=== PATIENT | female | born 1950 | race Caucasian/White ===

== ENCOUNTER 2018-04-24 22:43 | Inpatient (IN) | payer OTHER ==
[~2018-04-24] VITALS: Ht 162.6 cm; Wt 84.8 kg
[2018-04-24 22:53] VITALS: Ht 162.6 cm; Wt 84.8 kg
[2018-04-24 23:29] LABS: PLATELET COUNT 141 x10^3mcL (130-400)
[2018-04-24 23:31] LABS: BASOPHIL % 0 % (0-2); RED CELL DISTRIBUTION WIDTH 15.1 % (11.5-14.5)
[2018-04-24 23:50] LABS: T3 TOTAL 0.53 ng/mL
[2018-04-25] VITALS (9 sets, daily range): BP systolic 86–118; BP diastolic 43–62
[2018-04-25 00:07] LABS: FREE T4 1.43 ng/dL (0.76-1.46); FREE THYROXINE INDEX 3.5 ug/dL (1.4-4.5); T4(THYROXINE) 9.5 ug/dL (4.7-13.3)
[2018-04-25 00:09] LABS: CK-MB 3.1 ng/mL (0-3.6)
[2018-04-25 00:13] LABS: ALBUMIN 3.8 g/dL (3.4-5.0); BILIRUBIN TOTAL 0.8 mg/dL (0.20-1.00); CALCIUM 9.7 mg/dL (8.5-10.1); CARBON DIOXIDE 24.8 mmol/L (21-32); CREATININE SERUM 3.6 mg/dL (0.6-1.0); POTASSIUM SERUM 5.2 mmol/L (3.5-5.1); TOTAL PROTEIN, SERUM 6.9 g/dL (6.4-8.2)
[2018-04-25 00:16] LABS: C REACTIVE PROTEIN 0.4 mg/dL (<=0.9)
[2018-04-25 00:23] LABS: ERYTHROCYTE SED RATE 5 mm/hr (0-30)
[2018-04-25 00:30] LABS: UA SPECIFIC GRAVITY >=1.030 (1.005-1.035); microscopic required? YES; urine erythrocyte NEGATIVE (NEGATIVE)
[2018-04-25] MEDS ORDERED: PIOGLITAZONE HY30 MG PO (00:44)
[2018-04-25] MEDS ORDERED: HYDRALAZINE HY100 MG PO (00:44)
[2018-04-25] MEDS ORDERED: REPAGLINIDE2 MG PO (00:45)
[2018-04-25] MEDS ORDERED: GLIPIZIDE XL10 M1 PO (00:45)
[2018-04-25] MEDS ORDERED: COREG6.25 M1 PO (00:45)
[2018-04-25] MEDS ORDERED: LISINOPRIL40 MG PO (00:46)
[2018-04-25] MEDS ORDERED: SIMVASTATIN40 M1 PO (00:46)
[2018-04-25] MEDS ORDERED: BAYER ASPIRIN R81 MG PO (00:47)
[2018-04-25] MEDS ORDERED: EPZICOM1 TAB (00:47)
[2018-04-25] MEDS ORDERED: ZOFRAN8 MG PO (00:47)
[2018-04-25 16:07] LABS: CALCIUM 8.8 mg/dL (8.5-10.1); CREATININE SERUM 3.7 mg/dL (0.6-1.0); POTASSIUM SERUM 4.8 mmol/L (3.5-5.1)
[2018-04-26 05:37] VITALS: BP 99/59
[2018-04-26 06:14] LABS: BASOPHIL % 0.5 % (0-2)
[2018-04-26 06:30] LABS: CALCIUM 8.2 mg/dL (8.5-10.1); CARBON DIOXIDE 24.8 mmol/L (21-32); CREATININE SERUM 3.4 mg/dL (0.6-1.0); POTASSIUM SERUM 4.4 mmol/L (3.5-5.1)
[2018-04-26 06:44] LABS: CHOLESTEROL/HDL RATIO 2.3
[2018-04-26 07:02] LABS: PLATELET COUNT 97 x10^3mcL (130-400)
[2018-04-26 09:29] VITALS: BP 108/65
[2018-04-26 13:25] VITALS: BP 110/70
[2018-04-26 17:11] VITALS: BP 107/61
[2018-04-26 21:32] VITALS: BP 103/58
[2018-04-27 06:10] VITALS: BP 118/72
[2018-04-27 06:47] LABS: BASOPHIL % 0.5 % (0-2)
[2018-04-27 07:00] LABS: PLATELET COUNT 100 x10^3mcL (130-400); RED CELL DISTRIBUTION WIDTH 14.9 % (11.5-14.5)
[2018-04-27 07:22] LABS: CALCIUM 8.4 mg/dL (8.5-10.1); CARBON DIOXIDE 21.3 mmol/L (21-32); CREATININE SERUM 2.8 mg/dL (0.6-1.0); MAGNESIUM 2.1 mg/dL (1.8-2.4); POTASSIUM SERUM 4.6 mmol/L (3.5-5.1)
[2018-04-27] MEDS ORDERED: ELIQUIS2.5 MG PO (08:40)
[2018-04-27] MEDS ORDERED: METOPROLOL TART25 M1 PO (08:40)
[2018-04-27 09:00] VITALS: BP 127/76
[2018-04-27 11:41] VITALS: BP 127/76
== END 2018-04-27 12:57 | disposition home or self-care (01) | DRG 280 ==
LOC: ED 22:43 → DU 04-25 01:15
PROVIDERS: Internal Medicine; Specialist; ADMIT Internal Medicine Pulmonary Disease
DX: I21.4 Non-ST elevation (NSTEMI) myocardial infarction (principal); N17.0 Acute kidney failure with tubular necrosis; I50.23 Acute on chronic systolic (congestive) heart failure; I48.92 Unspecified atrial flutter; J44.1 Chronic obstructive pulmonary disease with (acute) exacerbation; I13.0 Hypertensive heart and chronic kidney disease with heart failure and stage 1 through stage 4 chronic kidney disease, or unspecified chronic kidney disease; I95.9 Hypotension, unspecified; N18.3 Chronic kidney disease, stage 3 (moderate); E11.22 Type 2 diabetes mellitus with diabetic chronic kidney disease; E87.5 Hyperkalemia; E11.42 Type 2 diabetes mellitus with diabetic polyneuropathy; I25.5 Ischemic cardiomyopathy; I25.10 Atherosclerotic heart disease of native coronary artery without angina pectoris; I48.2 Chronic atrial fibrillation; R54 Age-related physical debility; D64.9 Anemia, unspecified; E78.5 Hyperlipidemia, unspecified; Z95.1 Presence of aortocoronary bypass graft; Z68.32 Body mass index [BMI] 32.0-32.9, adult; Z79.84 Long term (current) use of oral hypoglycemic drugs
CPT/HCPCS: 36600; 82962; 83880; 84439; J1160; J1650; J1815; J1940; J3490; J7030; Q0092

== ENCOUNTER 2018-05-02 11:36 | Emergency (ER) | payer OTHER ==
[~2018-05-02] VITALS: Ht 162.6 cm; Wt 84.4 kg
[~2018-05-02 11:36] MED LIST: BAYER ASPIRIN R81 MG PO; COREG6.25 M1 PO; ELIQUIS2.5 MG PO; EPZICOM1 TAB; GLIPIZIDE XL10 M1 PO; HYDRALAZINE HY100 MG PO; LISINOPRIL40 MG PO; METOPROLOL TART25 M1 PO; PIOGLITAZONE HY30 MG PO; REPAGLINIDE2 MG PO; SIMVASTATIN40 M1 PO; ZOFRAN8 MG PO
[2018-05-02 11:44] VITALS: Ht 162.6 cm; Wt 84.4 kg
[2018-05-02 12:26] LABS: BASOPHIL % 0.3 % (0-2); PLATELET COUNT 160 x10^3mcL (130-400)
[2018-05-02 12:41] LABS: RED CELL DISTRIBUTION WIDTH 15.3 % (11.5-14.5)
[2018-05-02 12:45] LABS: ALBUMIN 3.6 g/dL (3.4-5.0); BILIRUBIN TOTAL 1.05 mg/dL (0.20-1.00); CALCIUM 8.7 mg/dL (8.5-10.1); CARBON DIOXIDE 26.6 mmol/L (21-32); CREATININE SERUM 2.4 mg/dL (0.6-1.0); POTASSIUM SERUM 5.1 mmol/L (3.5-5.1); TOTAL PROTEIN, SERUM 6.6 g/dL (6.4-8.2)
[2018-05-02 14:15] VITALS: BP 124/74
== END 2018-05-02 14:15 | disposition home or self-care (01) ==
LOC: ED 11:36
PROVIDERS: Emergency Medicine
DX: R53.1 Weakness (principal); R11.0 Nausea; J44.9 Chronic obstructive pulmonary disease, unspecified; I10 Essential (primary) hypertension; E11.9 Type 2 diabetes mellitus without complications; Z88.0 Allergy status to penicillin; Z98.890 Other specified postprocedural states
CPT/HCPCS: 36415; 83880; Q0092

== ENCOUNTER 2018-05-18 15:14 | Inpatient (IN) | payer OTHER ==
[~2018-05-18] VITALS: Ht 162.6 cm; Wt 96.3 kg
[2018-05-18 16:39] LABS: BASOPHIL % 0.3 % (0-2)
[2018-05-18 16:42] LABS: PLATELET COUNT 115 x10^3mcL (130-400); RED CELL DISTRIBUTION WIDTH 16.5 % (11.5-14.5)
[2018-05-18 16:48] LABS: AMPHETAMINE QUAL UR NONE DETECTED (See below)
[2018-05-18 16:51] LABS: ALBUMIN 3.7 g/dL (3.4-5.0); ALKALINE PHOSPHATASE 61 U/L (46-116); ALT/SGPT 26 U/L (14-59); AST/SGOT 27 U/L (15-37); BILIRUBIN TOTAL 1.24 mg/dL (0.20-1.00); CARBON DIOXIDE 26.5 mmol/L (21-32); CHLORIDE SERUM 106 mmol/L (98-107); CREATININE SERUM 3.3 mg/dL (0.6-1.0); GFR1 15 mL/min; GLUCOSE SERUM 113 mg/dL (74-106); SODIUM SERUM 142 mmol/L (136-145)
[2018-05-18 16:52] LABS: CHOLESTEROL 111 mg/dL (<200)
[2018-05-18 16:54] LABS: POTASSIUM SERUM 5.8 mmol/L (3.5-5.1)
[2018-05-18] MEDS ORDERED: ELIQUIS2.5 MG (18:07)
[2018-05-18 19:24] VITALS: BP 145/83
[2018-05-18 23:58] VITALS: BP 108/76
[2018-05-19] VITALS (8 sets, daily range): BP systolic 90–122; BP diastolic 53–72
[2018-05-19 06:28] LABS: BASOPHIL % 0.3 % (0-2)
[2018-05-19 06:33] LABS: PLATELET COUNT 95 x10^3mcL (130-400); RED CELL DISTRIBUTION WIDTH 15.8 % (11.5-14.5)
[2018-05-19 07:05] LABS: CALCIUM 9.1 mg/dL (8.5-10.1); CARBON DIOXIDE 23.5 mmol/L (21-32); CREATININE SERUM 3.1 mg/dL (0.6-1.0); MAGNESIUM 2.4 mg/dL (1.8-2.4); PHOSPHOROUS 4.9 mg/dL (2.5-4.9); POTASSIUM SERUM 4.6 mmol/L (3.5-5.1); TOTAL PROTEIN, SERUM 5.6 g/dL (6.4-8.2)
[2018-05-20 05:49] VITALS: BP 110/43
[2018-05-20 07:21] LABS: CREATININE SERUM 2.6 mg/dL (0.6-1.0); POTASSIUM SERUM 4.7 mmol/L (3.5-5.1)
[2018-05-20 07:47] LABS: BASOPHIL % 0.3 % (0-2); PLATELET COUNT 99 x10^3mcL (130-400); RED CELL DISTRIBUTION WIDTH 16.4 % (11.5-14.5)
[2018-05-20 08:26] VITALS: BP 106/67
[2018-05-20 12:37] VITALS: BP 103/70
[2018-05-20 17:49] VITALS: BP 98/56
[2018-05-20 20:58] VITALS: BP 102/47
[2018-05-21 00:35] VITALS: BP 102/50
[2018-05-21 05:04] VITALS: BP 105/62
[2018-05-21 07:11] LABS: BASOPHIL % 0.3 % (0-2); PLATELET COUNT 99 x10^3mcL (130-400); RED CELL DISTRIBUTION WIDTH 16.4 % (11.5-14.5)
[2018-05-21 07:13] LABS: CALCIUM 8.4 mg/dL (8.5-10.1); CARBON DIOXIDE 28.4 mmol/L (21-32); CREATININE SERUM 2.3 mg/dL (0.6-1.0); POTASSIUM SERUM 4.2 mmol/L (3.5-5.1)
[2018-05-21 09:14] VITALS: BP 105/60
[2018-05-21 13:33] VITALS: BP 115/60
[2018-05-21 17:23] VITALS: BP 115/67
[2018-05-21 20:55] VITALS: BP 105/59
[2018-05-22] VITALS (7 sets, daily range): BP systolic 95–128; BP diastolic 53–78
[2018-05-22 06:42] LABS: CALCIUM 8.6 mg/dL (8.5-10.1); CARBON DIOXIDE 28.4 mmol/L (21-32); CREATININE SERUM 2.2 mg/dL (0.6-1.0); POTASSIUM SERUM 4.3 mmol/L (3.5-5.1)
[2018-05-22 06:43] LABS: BASOPHIL % 0.5 % (0-2)
[2018-05-22 06:45] LABS: PLATELET COUNT 99 x10^3mcL (130-400); RED CELL DISTRIBUTION WIDTH 15.6 % (11.5-14.5)
[2018-05-23 05:42] VITALS: BP 95/69
[2018-05-23 06:07] LABS: BASOPHIL % 0.4 % (0-2)
[2018-05-23 06:29] LABS: PLATELET COUNT 100 x10^3mcL (130-400); RED CELL DISTRIBUTION WIDTH 16.4 % (11.5-14.5)
[2018-05-23 06:36] LABS: CALCIUM 9.1 mg/dL (8.5-10.1); POTASSIUM SERUM 4.7 mmol/L (3.5-5.1)
[2018-05-23 09:28] VITALS: BP 119/95
[2018-05-23 13:37] VITALS: BP 107/79
[2018-05-23 16:15] VITALS: BP 113/88
[2018-05-23 19:30] VITALS: BP 98/66
[2018-05-23 23:45] VITALS: BP 96/54
[2018-05-24 03:30] VITALS: BP 96/74
[2018-05-24 05:25] LABS: BASOPHIL % 0 % (0-2); PLATELET COUNT 102 x10^3mcL (130-400); RED CELL DISTRIBUTION WIDTH 16.4 % (11.5-14.5)
[2018-05-24 05:39] LABS: CALCIUM 8.7 mg/dL (8.5-10.1); CARBON DIOXIDE 28.1 mmol/L (21-32); CREATININE SERUM 2.1 mg/dL (0.6-1.0); MAGNESIUM 2.3 mg/dL (1.8-2.4); PHOSPHOROUS 4.7 mg/dL (2.5-4.9); POTASSIUM SERUM 4.8 mmol/L (3.5-5.1)
[2018-05-24 08:00] VITALS: BP 90/73
[2018-05-24 12:00] VITALS: BP 107/70
[2018-05-24 16:00] VITALS: BP 105/75
[2018-05-24 19:30] VITALS: BP 108/66
[2018-05-25 01:22] VITALS: BP 124/77
[2018-05-25 05:43] LABS: CALCIUM 8.7 mg/dL (8.5-10.1); CARBON DIOXIDE 25.5 mmol/L (21-32); CREATININE SERUM 2.4 mg/dL (0.6-1.0); MAGNESIUM 2.3 mg/dL (1.8-2.4)
[2018-05-25 12:00] VITALS: BP 142/92
[2018-05-25 14:52] VITALS: BP 142/92
[2018-05-25 16:47] VITALS: BP 149/76
[2018-05-25 20:38] VITALS: BP 117/66
[2018-05-26 05:57] VITALS: BP 124/71
[2018-05-26 06:37] LABS: CALCIUM 8.2 mg/dL (8.5-10.1); CREATININE SERUM 2.1 mg/dL (0.6-1.0); POTASSIUM SERUM 4.2 mmol/L (3.5-5.1)
[2018-05-26 08:46] VITALS: BP 110/68
[2018-05-26 12:00] VITALS: BP 101/65
[2018-05-26 12:28] LABS: BASOPHIL % 0.2 % (0-2); PLATELET COUNT 124 x10^3mcL (130-400); RED CELL DISTRIBUTION WIDTH 17.2 % (11.5-14.5)
[2018-05-26 16:00] VITALS: BP 91/58
[2018-05-26 19:40] VITALS: BP 99/61
[2018-05-26 23:23] VITALS: BP 95/68
[2018-05-27 03:46] VITALS: BP 98/58
[2018-05-27 06:28] LABS: CALCIUM 7.6 mg/dL (8.5-10.1); CARBON DIOXIDE 29.7 mmol/L (21-32); POTASSIUM SERUM 4.7 mmol/L (3.5-5.1)
[2018-05-27 07:00] VITALS: BP 96/61
[2018-05-27 11:00] VITALS: BP 95/70
[2018-05-27 13:08] LABS: BASOPHIL % 0.2 % (0-2); PLATELET COUNT 115 x10^3mcL (130-400); RED CELL DISTRIBUTION WIDTH 17.2 % (11.5-14.5)
[2018-05-27 16:05] VITALS: BP 102/56
[2018-05-27 19:40] VITALS: BP 117/61
[2018-05-27 23:10] VITALS: BP 101/46
[2018-05-28] VITALS (7 sets, daily range): BP systolic 100–125; BP diastolic 52–75
[2018-05-28 05:44] LABS: BASOPHIL % 0 % (0-2); PLATELET COUNT 109 x10^3mcL (130-400)
[2018-05-28 06:16] LABS: CALCIUM 8.3 mg/dL (8.5-10.1); CARBON DIOXIDE 30.9 mmol/L (21-32); MAGNESIUM 2.1 mg/dL (1.8-2.4); PHOSPHOROUS 3.4 mg/dL (2.5-4.9); POTASSIUM SERUM 5.1 mmol/L (3.5-5.1)
[2018-05-28 06:23] LABS: CREATININE SERUM 2.2 mg/dL (0.6-1.0)
[2018-05-28 15:49] LABS: microscopic required? YES
[2018-05-28 15:50] LABS: urine erythrocyte 3+ (NEGATIVE)
[2018-05-29 04:00] VITALS: BP 112/53
[2018-05-29 05:45] LABS: CALCIUM 8.6 mg/dL (8.5-10.1); CARBON DIOXIDE 30.1 mmol/L (21-32); CREATININE SERUM 2.3 mg/dL (0.6-1.0); PHOSPHOROUS 3.7 mg/dL (2.5-4.9); POTASSIUM SERUM 4.7 mmol/L (3.5-5.1)
[2018-05-29 05:52] LABS: BASOPHIL % 0.2 % (0-2); PLATELET COUNT 109 x10^3mcL (130-400)
[2018-05-29 07:50] VITALS: BP 93/68
[2018-05-29 11:21] VITALS: BP 110/67
[2018-05-29 15:13] VITALS: BP 107/71
[2018-05-29 19:30] VITALS: BP 113/81
[2018-05-29 23:41] VITALS: BP 103/69
[2018-05-30 03:24] VITALS: BP 104/47
[2018-05-30 05:25] LABS: CALCIUM 8.8 mg/dL (8.5-10.1); CARBON DIOXIDE 30.8 mmol/L (21-32); CREATININE SERUM 2.4 mg/dL (0.6-1.0); MAGNESIUM 2.1 mg/dL (1.8-2.4); PHOSPHOROUS 4.2 mg/dL (2.5-4.9); POTASSIUM SERUM 4.7 mmol/L (3.5-5.1)
[2018-05-30 05:37] LABS: BASOPHIL % 0.2 % (0-2); PLATELET COUNT 119 x10^3mcL (130-400); RED CELL DISTRIBUTION WIDTH 17.6 % (11.5-14.5)
[2018-05-30 07:30] VITALS: BP 125/76
[2018-05-30 07:50] VITALS: Ht 162.6 cm; Wt 96.3 kg
[2018-05-30 12:30] VITALS: BP 148/91
[2018-05-30 16:15] VITALS: BP 133/77
[2018-05-30 17:00] VITALS: BP 99/76
[2018-05-30 22:00] VITALS: BP 103/73
[2018-05-31 06:01] VITALS: BP 104/69
[2018-05-31 06:43] LABS: BILIRUBIN DIRECT 0.72 mg/dL (0.0-0.2); BILIRUBIN TOTAL 1.56 mg/dL (0.20-1.00); CALCIUM 8.5 mg/dL (8.5-10.1); CARBON DIOXIDE 32.3 mmol/L (21-32); CREATININE SERUM 2.3 mg/dL (0.6-1.0); POTASSIUM SERUM 4.1 mmol/L (3.5-5.1)
[2018-05-31 06:44] LABS: ALBUMIN 2.9 g/dL (3.4-5.0); TOTAL PROTEIN, SERUM 5.5 g/dL (6.4-8.2)
[2018-05-31 06:45] LABS: MAGNESIUM 2.1 mg/dL (1.8-2.4); PHOSPHOROUS 3.8 mg/dL (2.5-4.9)
[2018-05-31 08:34] LABS: BASOPHIL % 0.3 % (0-2); PLATELET COUNT 114 x10^3mcL (130-400); RED CELL DISTRIBUTION WIDTH 17.5 % (11.5-14.5)
[2018-05-31 08:53] VITALS: BP 110/54
[2018-05-31 13:49] VITALS: BP 105/70
[2018-05-31 17:13] VITALS: BP 108/80
[2018-05-31 20:59] VITALS: BP 109/54
[2018-06-01 05:20] VITALS: BP 117/63
[2018-06-01 06:29] LABS: CALCIUM 8.6 mg/dL (8.5-10.1); CARBON DIOXIDE 36.5 mmol/L (21-32); CREATININE SERUM 2.1 mg/dL (0.6-1.0); MAGNESIUM 1.9 mg/dL (1.8-2.4); PHOSPHOROUS 3.9 mg/dL (2.5-4.9); POTASSIUM SERUM 3.8 mmol/L (3.5-5.1)
[2018-06-01 06:48] LABS: BASOPHIL % 0.3 % (0-2); PLATELET COUNT 106 x10^3mcL (130-400)
[2018-06-01 09:28] VITALS: BP 115/80
[2018-06-01 12:49] VITALS: BP 110/74
[2018-06-01 16:49] VITALS: BP 109/60
[2018-06-01 22:28] VITALS: BP 88/60
== END 2018-06-02 12:24 | disposition expired | DRG 226 ==
LOC: ED 15:14 → DU 17:55 → IC 17:55 → DU 18:45 → IC 05-23 13:51 → DU 05-25 14:38 → IC 05-26 09:49 → DU 05-26 11:37 → IC 05-26 11:38 → DU 05-30 17:53
PROVIDERS: Emergency Medicine; Family Medicine; Internal Medicine; Internal Medicine Nephrology; Internal Medicine Pulmonary Disease; ADMIT Internal Medicine Pulmonary Disease
PROC: 5A2204Z Restoration of Cardiac Rhythm, Single (ICD-10-PCS; 2018-05-24)
PROC: B24BZZ4 Ultrasonography of Heart with Aorta, Transesophageal (ICD-10-PCS; 2018-05-24)
PROC: 02HK3KZ Insertion of Defibrillator Lead into Right Ventricle, Percutaneous Approach (ICD-10-PCS; 2018-06-01)
PROC: 02H63KZ Insertion of Defibrillator Lead into Right Atrium, Percutaneous Approach (ICD-10-PCS; 2018-06-01)
PROC: 0JH608Z Insertion of Defibrillator Generator into Chest Subcutaneous Tissue and Fascia, Open Approach (ICD-10-PCS; principal; 2018-06-01 13:00)
PROC: 5A12012 Performance of Cardiac Output, Single, Manual (ICD-10-PCS; 2018-06-02)
DX: I22.2 Subsequent non-ST elevation (NSTEMI) myocardial infarction (principal); N17.0 Acute kidney failure with tubular necrosis; I50.43 Acute on chronic combined systolic (congestive) and diastolic (congestive) heart failure; I13.0 Hypertensive heart and chronic kidney disease with heart failure and stage 1 through stage 4 chronic kidney disease, or unspecified chronic kidney disease; I48.1 Persistent atrial fibrillation; I48.92 Unspecified atrial flutter; N18.4 Chronic kidney disease, stage 4 (severe); I21.4 Non-ST elevation (NSTEMI) myocardial infarction; I21.A1 Myocardial infarction type 2; I49.5 Sick sinus syndrome; I25.5 Ischemic cardiomyopathy; I27.20 Pulmonary hypertension, unspecified; J44.9 Chronic obstructive pulmonary disease, unspecified; E87.5 Hyperkalemia; I36.1 Nonrheumatic tricuspid (valve) insufficiency; E11.22 Type 2 diabetes mellitus with diabetic chronic kidney disease; I35.0 Nonrheumatic aortic (valve) stenosis; E11.21 Type 2 diabetes mellitus with diabetic nephropathy; I73.9 Peripheral vascular disease, unspecified; I25.10 Atherosclerotic heart disease of native coronary artery without angina pectoris; E78.5 Hyperlipidemia, unspecified; I25.2 Old myocardial infarction; E66.01 Morbid (severe) obesity due to excess calories; Z68.33 Body mass index [BMI] 33.0-33.9, adult; Z79.01 Long term (current) use of anticoagulants; Z79.84 Long term (current) use of oral hypoglycemic drugs; Z95.1 Presence of aortocoronary bypass graft
CPT/HCPCS: 33249; 93641; 92950; 92960; C1721; C1896; G9157; 82962; C1769; G0480; J0282; J1644; J1815; J1940; J2001; J2250; J2405; J2704; J3010; J3370; J3490; J7030; J7040; J7050; J7060; J7613; P9047; Q0092; Q9967